=== PATIENT | female | born 1990 | race Caucasian/White ===

== ENCOUNTER 2017-07-11 10:54 | Emergency (ER) | payer SELFPAY ==
[~2017-07-11] VITALS: Ht 167.6 cm; Wt 115.6 kg
[~2017-07-11 10:54] MED LIST: DEPO-PROVER150 MG/M1 IM; MACROBID100 MG PO; METRONIDAZOLE500 MG PO
[2017-07-11 10:59] VITALS: BP 121/90; PULSE 70; TEMP 97.9
[2017-07-11 11:25] LABS: PH 5 (5-8); URINE APPEARANCE Hazy; URINE BACTERIA Rare /hpf; URINE BILIRUBIN Negative (NEGATIVE); URINE BLOOD 2+ (NEGATIVE); URINE COLOR Yellow; URINE GLUCOSE Negative (NEGATIVE); URINE KETONE Negative (NEGATIVE); URINE UROBILINOGEN Negative (NEGATIVE)
[2017-07-11 12:22] LABS: BASO # 0.1 (0.0-0.2); BASO % 0.4 % (0.0-2.0); EOS # 0.1 (0.0-0.7); GRAN # 11.7 (1.4-6.5); HEMATOCRIT 41.4 % (37.0-47.0); HEMOGLOBIN 13.7 g/dl (12.5-16.0); LYMPH # 1.4 (1.2-3.4); LYMPH % 10.1 % (20.0-51.0); MEAN CELL VOLUME 92 fl (80.0-100.0); MEAN CORPUSCULAR HEMOGLOBIN 30 pg (27.0-31.0); MEAN CORPUSCULAR HGB CONC 33 g/dl (33.0-37.0); MEAN PLATELET VOLUME 10.2 fl (7.4-10.4); MONO # 0.8 (0.1-0.6); MONO % 5.3 % (1.7-9.3); PLATELET COUNT 274 K/mm3 (130-400); RED BLOOD COUNT 4.51 M/mm3 (4.10-5.30); REDCELL DISTRIBUTION WIDTH-CV 13.1 % (11.5-14.5); WHITE BLOOD COUNT 14.2 K/mm3 (4.8-10.8)
[2017-07-11 12:28] LABS: ALBUMIN 4.1 gm/dL (3.5-5.0); BILIRUBIN,TOTAL 0.4 mg/dL (0.0-1.0); C-REACTIVE PROTEIN 1.6 mg/dL (0.0-0.9); CALCIUM 9.1 mg/dL (8.4-10.2); CREATININE, serum 0.87 mg/dL (0.52-1.25); POTASSIUM 4.2 mmol/L (3.4-5.0); TOTAL PROTEIN 7.2 gm/dL (6.4-8.2)
[2017-07-11 15:06] LABS: PH 6 (5-8); SQUAMOUS EPITHELIAL 0-2 /hpf; URINE APPEARANCE Clear; URINE BACTERIA Rare /hpf; URINE BILIRUBIN Negative (NEGATIVE); URINE BLOOD 2+ (NEGATIVE); URINE COLOR Yellow; URINE GLUCOSE Negative (NEGATIVE); URINE KETONE Negative (NEGATIVE); URINE UROBILINOGEN Negative (NEGATIVE); URINE WBC 0-2 /hpf
[2017-07-11] MEDS ORDERED: CIPRO 500MG TA500 MG PO (15:39)
[2017-07-11] MEDS ORDERED: FLOMAX 0.40.4 MG/CAP PO (15:39)
[2017-07-11] MEDS ORDERED: PROMETHAZINE12.5 M5 PO (15:39)
[2017-07-11] MEDS ORDERED: NORCO 325 MG-7.1 TAB PO (15:39)
== END 2017-07-11 15:55 | disposition home or self-care (01) ==
LOC: COL.ER 10:54
PROVIDERS: Physician Assistant
DX: N20.0 Calculus of kidney (principal); F17.210 Nicotine dependence, cigarettes, uncomplicated; Z87.448 Personal history of other diseases of urinary system; Z98.890 Other specified postprocedural states
CPT/HCPCS: J1170; J1885; J1956; J2405; J7030; Q9967

== ENCOUNTER 2017-10-20 02:15 | Observation (INO) | payer SELFPAY ==
[2017-10-20] VITALS (469 sets, daily range): BP systolic 104–128; BP diastolic 58–80; PULSE 68–79; TEMP 98.1–98.7; O2SAT 94–100
[~2017-10-20] VITALS: Ht 167.6 cm; Wt 104.8 kg
[~2017-10-20 02:15] MED LIST changes: +CIPRO 500MG TA500 MG PO; +FLOMAX 0.40.4 MG/CAP PO; +NORCO 325 MG-7.1 TAB PO; +PROMETHAZINE12.5 M5 PO
[2017-10-20] MEDS ORDERED: PRIL40 PO (02:22)
[2017-10-20 02:42] LABS: BASO % 0.2 % (0.0-2.0); EOS # 0.1 (0.0-0.7); EOS % 1.7 % (0-4.0); GRAN # 5.3 (1.4-6.5); GRAN % 62.9 % (42.2-75.2); HEMATOCRIT 43.7 % (37.0-47.0); HEMOGLOBIN 14.3 g/dl (12.5-16.0); LYMPH # 2.3 (1.2-3.4); LYMPH % 27.9 % (20.0-51.0); MEAN CELL VOLUME 92 fl (80.0-100.0); MEAN CORPUSCULAR HEMOGLOBIN 30 pg (27.0-31.0); MEAN CORPUSCULAR HGB CONC 33 g/dl (33.0-37.0); MEAN PLATELET VOLUME 9.8 fl (7.4-10.4); MONO # 0.6 (0.1-0.6); MONO % 6.8 % (1.7-9.3); PLATELET COUNT 320 K/mm3 (130-400); RED BLOOD COUNT 4.76 M/mm3 (4.10-5.30); WHITE BLOOD COUNT 8.4 K/mm3 (4.8-10.8)
[2017-10-20 02:51] LABS: ADJUSTED CALCIUM 8.8 mg/dL (8.4-10.2); ALANINE AMINOTRANSFERASE 42 U/L (9-52); ALBUMIN 4.3 gm/dL (3.5-5.0); ALCOHOL(ethanol),MEDICAL 148 mg/dL; ALKALINE PHOSPHATASE 81 U/L (50-136); ANION GAP 14 mmol/L (7-16); BILIRUBIN,TOTAL 0.4 mg/dL (0.0-1.0); BLOOD UREA NITROGEN 4 mg/dL (7-17); CARBON DIOXIDE 21 mmol/L (22-30); CHLORIDE 109 mmol/L (98-107); CREATININE, serum 0.64 mg/dL (0.52-1.25); GLUCOSE 103 mg/dL (74-106); LIPASE 32 U/L (23-300); POTASSIUM 3.6 mmol/L (3.4-5.0); SODIUM 144 mmol/L (137-145); TOTAL PROTEIN 7.4 gm/dL (6.4-8.2)
[2017-10-20 02:54] LABS: ACETAMINOPHEN < 10 ug/mL (10-30); SALICYLATE < 1.0 mg/dL
[2017-10-20 04:45] LABS: AMPHETAMINE URINE NEGATIVE; BARBITURATES URINE NEGATIVE; BENZODIAZEPINES URINE POSITIVE; BUPRENORPHINE URINE NEGATIVE; METHADONE URINE NEGATIVE; OPIATES URINE NEGATIVE; OXYCODONE URINE NEGATIVE; PHENCYCLIDINE URINE NEGATIVE; PROPOXYPHENE URINE NEGATIVE; THC CANNABINOIDS URINE POSITIVE; TRICYCLIC ANTIDEPRESS URINE NEGATIVE
[2017-10-20] MEDS ORDERED: PRILOTC PO (16:17)
[2017-10-21] VITALS (288 sets, daily range): BP systolic 101–120; BP diastolic 60–80; PULSE 53–82; TEMP 97.9–98; O2SAT 96–100
== END 2017-10-21 18:00 ==
LOC: COL.ER 02:15 → ICU 13:59
PROVIDERS: Emergency Medicine
DX: F32.9 Major depressive disorder, single episode, unspecified (principal); F17.200 Nicotine dependence, unspecified, uncomplicated
CPT/HCPCS: G0378; J7030

== ENCOUNTER 2019-01-09 20:35 | Emergency (ER) | payer SELFPAY ==
[~2019-01-09] VITALS: Ht 167.6 cm; Wt 106.4 kg
[~2019-01-09 20:35] MED LIST changes: +PRIL40 PO; +PRILOTC PO
[2019-01-09 20:49] VITALS: BP 127/79; TEMP 98.4
[2019-01-09 21:15] LABS: COLLECTION METHOD CLEAN CATCH
[2019-01-09 21:29] LABS: MUCOUS Present /lpf; PH 6 (5-8); SQUAMOUS EPITHELIAL 0-2 /hpf; URINE APPEARANCE Clear; URINE BACTERIA Rare /hpf; URINE BILIRUBIN Negative (NEGATIVE); URINE BLOOD 1+ (NEGATIVE); URINE COLOR Yellow; URINE GLUCOSE Negative (NEGATIVE); URINE KETONE Negative (NEGATIVE); URINE LEUKOCYTE ESTERASE 1+ (NEGATIVE); URINE NITRATE Negative (NEGATIVE); URINE PROTEIN(semi-quant) Negative (NEGATIVE); URINE UROBILINOGEN Negative (NEGATIVE)
[2019-01-09 22:34] LABS: BASO % 0.3 % (0.0-2.0); EOS # 0.2 (0.0-0.7); EOS % 2.3 % (0-4.0); GRAN # 5.3 (1.4-6.5); GRAN % 53.3 % (42.2-75.2); HEMATOCRIT 38.9 % (37.0-47.0); LYMPH # 3.5 (1.2-3.4); LYMPH % 35.2 % (20.0-51.0); MEAN CELL VOLUME 90 fl (80.0-100.0); MEAN CORPUSCULAR HEMOGLOBIN 30 pg (27.0-31.0); MEAN CORPUSCULAR HGB CONC 33 g/dl (33.0-37.0); MONO # 0.9 (0.1-0.6); MONO % 8.5 % (1.7-9.3); PLATELET COUNT 368 K/mm3 (130-400); RED BLOOD COUNT 4.32 M/mm3 (4.10-5.30); REDCELL DISTRIBUTION WIDTH-CV 12.3 % (11.5-14.5)
[2019-01-09 22:45] LABS: ALBUMIN 3.8 gm/dL (3.5-5.0); BILIRUBIN,TOTAL 0.2 mg/dL (0.0-1.0); C-REACTIVE PROTEIN 3.7 mg/dL (0.0-0.9); CALCIUM 9.1 mg/dL (8.4-10.2); CREATININE, serum 0.71 mg/dL (0.52-1.25); POTASSIUM 3.7 mmol/L (3.4-5.0); TOTAL PROTEIN 7.3 gm/dL (6.4-8.2)
[2019-01-09] MEDS ORDERED: MACROBID 1100 MG/CAP PO (23:01)
[2019-01-09 23:15] VITALS: PULSE 70
== END 2019-01-09 23:15 | disposition home or self-care (01) ==
LOC: COL.ER 20:35
PROVIDERS: Nurse Practitioner
DX: N39.0 Urinary tract infection, site not specified (principal); F17.210 Nicotine dependence, cigarettes, uncomplicated; Z87.442 Personal history of urinary calculi

== ENCOUNTER 2019-01-21 18:35 | Emergency (ER) | payer SELFPAY | END 2019-01-21 22:23 | disposition home or self-care (01) | LOC: COL.ER 18:35 | DX: N20.1 Calculus of ureter (principal); N23 Unspecified renal colic ==

== ENCOUNTER 2019-01-29 20:39 | Emergency (ER) | payer SELFPAY ==
[~2019-01-29] VITALS: Ht 167.6 cm; Wt 105.5 kg
[~2019-01-29 20:39] MED LIST changes: +MACROBID 1100 MG/CAP PO; +NORCO 325 MG-51 TAB PO; +ZOFRAN 4MG T4 MG/TAB PO
[2019-01-29 20:46] VITALS: BP 153/87; TEMP 98
[2019-01-29 22:29] VITALS: PULSE 88
== END 2019-01-29 22:29 | disposition home or self-care (01) ==
LOC: COL.ER 20:39
DX: F32.9 Major depressive disorder, single episode, unspecified (principal)

== ENCOUNTER 2019-02-23 06:43 | Emergency (ER) | payer SELFPAY ==
[~2019-02-23] VITALS: Ht 167.6 cm; Wt 107.7 kg
[2019-02-23 06:49] VITALS: BP 145/94; TEMP 98.6
[2019-02-23 07:08] LABS: BASO % 0.3 % (0.0-2.0); EOS # 0.2 (0.0-0.7); EOS % 1.6 % (0-4.0); GRAN # 9.4 (1.4-6.5); GRAN % 71.6 % (42.2-75.2); HEMATOCRIT 43.5 % (37.0-47.0); HEMOGLOBIN 14.5 g/dl (12.5-16.0); LYMPH # 2.6 (1.2-3.4); LYMPH % 19.7 % (20.0-51.0); MEAN CELL VOLUME 93 fl (80.0-100.0); MEAN CORPUSCULAR HEMOGLOBIN 31 pg (27.0-31.0); MEAN CORPUSCULAR HGB CONC 33 g/dl (33.0-37.0); MEAN PLATELET VOLUME 9.8 fl (7.4-10.4); MONO # 0.8 (0.1-0.6); MONO % 6.3 % (1.7-9.3); PLATELET COUNT 295 K/mm3 (130-400); RED BLOOD COUNT 4.68 M/mm3 (4.10-5.30); REDCELL DISTRIBUTION WIDTH-CV 13.3 % (11.5-14.5)
[2019-02-23 07:14] LABS: COLLECTION METHOD CLEAN CATCH
[2019-02-23 07:17] LABS: ALBUMIN 4.1 gm/dL (3.5-5.0); BILIRUBIN,TOTAL 0.6 mg/dL (0.0-1.0); CALCIUM 9.1 mg/dL (8.4-10.2); CREATININE, serum 0.88 (0.52-1.25); POTASSIUM 3.7 mmol/L (3.4-5.0); TOTAL PROTEIN 7.4 gm/dL (6.4-8.2)
[2019-02-23 07:33] LABS: MUCOUS Present /lpf; PH 5 (5-8); URINE APPEARANCE Hazy; URINE BACTERIA Rare /hpf; URINE BILIRUBIN Negative (NEGATIVE); URINE BLOOD 3+ (NEGATIVE); URINE COLOR Yellow; URINE GLUCOSE Negative (NEGATIVE); URINE KETONE 1+ (NEGATIVE); URINE LEUKOCYTE ESTERASE Negative (NEGATIVE); URINE NITRATE Negative (NEGATIVE); URINE PROTEIN(semi-quant) 1+ (NEGATIVE); URINE RBC >50 /hpf; URINE UROBILINOGEN Negative (NEGATIVE)
[2019-02-23] MEDS ORDERED: CIPRO 500MG TA500 MG PO (08:21)
[2019-02-23] MEDS ORDERED: PERCOCET 325 MG1 TA2 PO (08:21)
[2019-02-23] MEDS ORDERED: FLOMAX 0.40.4 MG/CAP PO (08:21)
[2019-02-23] MEDS ORDERED: PHENERGAN 25 TA25 MG PO (08:52)
[2019-02-23 09:11] VITALS: PULSE 75
== END 2019-02-23 09:12 | disposition home or self-care (01) ==
LOC: COL.ER 06:43
PROVIDERS: Emergency Medicine
DX: N20.1 Calculus of ureter (principal); N23 Unspecified renal colic; Z87.442 Personal history of urinary calculi; Z98.890 Other specified postprocedural states
CPT/HCPCS: J1885; J2270; J2405; J7030; Q9967

== ENCOUNTER 2019-03-06 10:17 | Emergency (ER) | payer SELFPAY ==
[~2019-03-06] VITALS: Ht 167.6 cm; Wt 105.9 kg
[~2019-03-06 10:17] MED LIST changes: +PERCOCET 325 MG1 TA2 PO; +PHENERGAN 25 TA25 MG PO
[2019-03-06 10:26] VITALS: TEMP 98.5
[2019-03-06 10:42] LABS: COLLECTION METHOD CLEAN CATCH
[2019-03-06 10:52] LABS: MUCOUS Present /lpf; PH 6 (5-8); SQUAMOUS EPITHELIAL 0-2 /hpf; URINE APPEARANCE Hazy; URINE BACTERIA None Seen /hpf; URINE BILIRUBIN Negative (NEGATIVE); URINE BLOOD 2+ (NEGATIVE); URINE COLOR Yellow; URINE GLUCOSE Negative (NEGATIVE); URINE KETONE Trace (NEGATIVE); URINE LEUKOCYTE ESTERASE Negative (NEGATIVE); URINE NITRATE Negative (NEGATIVE); URINE PROTEIN(semi-quant) 1+ (NEGATIVE); URINE RBC >50 /hpf
[2019-03-06 13:06] VITALS: BP 124/86; PULSE 76
== END 2019-03-06 13:07 | disposition home or self-care (01) ==
LOC: COL.ER 10:17
PROVIDERS: Emergency Medicine
DX: N20.0 Calculus of kidney (principal); F17.210 Nicotine dependence, cigarettes, uncomplicated; F12.90 Cannabis use, unspecified, uncomplicated
CPT/HCPCS: J1885; J7030

== ENCOUNTER 2019-03-06 14:09 | Day surgery (SDC) | payer SELFPAY ==
[~2019-03-06] VITALS: Ht 167.6 cm; Wt 105.6 kg
[2019-03-06 16:54] VITALS: BP 125/72; PULSE 76; TEMP 98.9
--- NOTE | 2019-03-06 17:04 | NUR ---
TO RM AT 1420- CALL LIGHT IN REACH FRIEND AT BEDSIDE.
[2019-03-06 19:00] VITALS: BP 128/66; PULSE 67
[2019-03-06 19:15] VITALS: BP 116/70; PULSE 66
[2019-03-06 19:30] VITALS: BP 113/66; PULSE 61
[2019-03-06 20:00] VITALS: BP 121/68; PULSE 70; TEMP 98.2
--- NOTE | 2019-03-06 20:15 | NUR ---
Pt discharged at this time. LH INT discontinued with the catheter tip intact. Pt has voided free of complication, has been able to drink water without N/V, and has been up moving through the hallway. Education provided and all questions were answered. Pt verbalizes understanding. Pt escourted out ambulatory with this nurse.
[2019-03-06 22:01] VITALS: BP 121/37; PULSE 70
== END 2019-03-06 20:15 | disposition home or self-care (01) ==
LOC: SDCO 14:09 → MEDICAL 18:45 → SDCO 20:15
DX: N20.1 Calculus of ureter (principal); Z87.442 Personal history of urinary calculi; F17.210 Nicotine dependence, cigarettes, uncomplicated
CPT/HCPCS: OP; J0690; J1100; J1885; J1940; J2250; J2405; J2704; J3010; J7030; Q9967

== ENCOUNTER 2020-10-10 08:05 | Emergency (ER) | payer SELFPAY ==
[~2020-10-10] VITALS: Ht 165.1 cm; Wt 110.5 kg
[2020-10-10 08:15] VITALS: TEMP 98
[2020-10-10 09:06] LABS: BASO % 0.5 % (0.0-2.0); EOS # 0.3 (0.0-0.7); EOS % 3.4 % (0-4.0); GRAN # 5.3 (1.4-6.5); GRAN % 66.5 % (42.2-75.2); HEMATOCRIT 39.3 % (37.0-47.0); HEMOGLOBIN 12.7 g/dl (12.5-16.0); LYMPH # 1.9 (1.2-3.4); LYMPH % 23.3 % (20.0-51.0); MEAN CELL VOLUME 90 fl (80.0-100.0); MEAN CORPUSCULAR HEMOGLOBIN 29 pg (27.0-31.0); MEAN CORPUSCULAR HGB CONC 32 g/dl (33.0-37.0); MEAN PLATELET VOLUME 9.3 fl (7.4-10.4); MONO # 0.5 (0.1-0.6); MONO % 5.8 % (1.7-9.3); PLATELET COUNT 345 K/mm3 (130-400); RED BLOOD COUNT 4.37 M/mm3 (4.10-5.30); REDCELL DISTRIBUTION WIDTH-CV 13.1 % (11.5-14.5)
[2020-10-10 09:59] LABS: ALBUMIN 4.2 gm/dL (3.5-5.0); BILIRUBIN,TOTAL 0.5 mg/dL (0.0-1.0); C-REACTIVE PROTEIN 2.1 mg/dL (0.0-0.9); CALCIUM 8.8 mg/dL (8.4-10.2); CREATININE, serum 0.8 (0.52-1.25); POTASSIUM 4.1 mmol/L (3.4-5.0); TOTAL PROTEIN 7.6 gm/dL (6.4-8.2)
[2020-10-10 10:04] LABS: COLLECTION METHOD CLEAN CATCH
[2020-10-10] MEDS ORDERED: FLAGYL500 MG PO (10:14)
[2020-10-10 10:15] LABS: MUCOUS Present /lpf; PH 5 (5-8); URINE APPEARANCE Cloudy; URINE BACTERIA Occasional /hpf; URINE BILIRUBIN Negative (NEGATIVE); URINE BLOOD 3+ (NEGATIVE); URINE COLOR Amber; URINE GLUCOSE Negative (NEGATIVE); URINE KETONE Negative (NEGATIVE); URINE LEUKOCYTE ESTERASE Trace (NEGATIVE); URINE NITRATE Negative (NEGATIVE); URINE PROTEIN(semi-quant) 2+ (NEGATIVE); URINE RBC >50 /hpf; URINE UROBILINOGEN Negative (NEGATIVE)
[2020-10-10 10:37] VITALS: BP 130/102; PULSE 88
== END 2020-10-10 10:30 | disposition home or self-care (01) ==
LOC: COL.ER 08:05
PROVIDERS: Physician Assistant
DX: N93.8 Other specified abnormal uterine and vaginal bleeding (principal); N76.0 Acute vaginitis; F17.200 Nicotine dependence, unspecified, uncomplicated; Z32.02 Encounter for pregnancy test, result negative; Z88.1 Allergy status to other antibiotic agents; Z88.0 Allergy status to penicillin
CPT/HCPCS: J1885

== ENCOUNTER 2021-10-22 08:14 | Emergency (ER) | payer SELFPAY ==
[~2021-10-22] VITALS: Ht 165.1 cm; Wt 113.6 kg
[~2021-10-22 08:14] MED LIST changes: +FLAGYL500 MG PO
[2021-10-22 08:25] VITALS: BP 114/83; PULSE 79; TEMP 98.5
[2021-10-22] MEDS ORDERED: MEDROL 4MG DOSPA4 MG PO (08:58)
== END 2021-10-22 09:06 | disposition home or self-care (01) ==
LOC: COL.ER 08:14
DX: L25.9 Unspecified contact dermatitis, unspecified cause (principal); Z87.891 Personal history of nicotine dependence; Z88.1 Allergy status to other antibiotic agents
CPT/HCPCS: J7512